=== PATIENT | male | born 1990 | race Caucasian/White ===

== ENCOUNTER 2020-07-13 15:31 | Emergency (ER) | payer BC, OTHER ==
[~2020-07-13] VITALS: Ht 177.8 cm; Wt 127.0 kg
[~2020-07-13 15:31] MED LIST: PANTOPRAZOLE SO20 MG
[2020-07-13] MEDS ORDERED: ONDANSETRON HCL 4 MG ORAL DISINTEGRATING TAB PO ONE (16:00)
[2020-07-13] MEDS ORDERED: ONDANSETRON HCL 4 MG ORAL DISINTEGRATING TAB ONE (16:12)
[2020-07-13] MEDS ORDERED: ZOFRAN4 MG PO (16:24)
== END 2020-07-13 17:46 | disposition home or self-care (01) ==
LOC: ER 15:59
DX: R11.2 Nausea with vomiting, unspecified (principal); R19.7 Diarrhea, unspecified; R53.83 Other fatigue; Z87.891 Personal history of nicotine dependence
CPT/HCPCS: 99283; Q0162